=== PATIENT | male | born 1995 | race Caucasian/White ===

== ENCOUNTER 2018-11-05 21:07 | Emergency (ER) | payer OTHER | END 2018-11-05 22:23 | disposition home or self-care (01) | LOC: M ED 21:07 | DX: S60.031A Contusion of right middle finger without damage to nail, initial encounter (principal); S60.051A Contusion of right little finger without damage to nail, initial encounter; W22.8XXA Striking against or struck by other objects, initial encounter; Y92.59 Other trade areas as the place of occurrence of the external cause | CPT/HCPCS: 73130 ==

== ENCOUNTER 2018-12-25 15:37 | Emergency (ER) | payer OTHER ==
[~2018-12-25] VITALS: Ht 177.8 cm; Wt 90.9 kg
[2018-12-25 15:38] VITALS: BP 119/74
--- NOTE | 2018-12-25 16:07 | REP ---
Left elbow four views History: Fall There is no acute fracture or dislocation. The joint space is normal in appearance. Impression: There is no acute fracture or dislocation. Electronically Signed by Jameson Huertas MD 12/25/2018 03:58 P
== END 2018-12-25 16:20 | disposition home or self-care (01) ==
LOC: M ED 15:37
DX: S50.01XA Contusion of right elbow, initial encounter (principal); X58.XXXA Exposure to other specified factors, initial encounter; Y92.009 Unspecified place in unspecified non-institutional (private) residence as the place of occurrence of the external cause; Y93.89 Activity, other specified; Z88.0 Allergy status to penicillin; Z88.1 Allergy status to other antibiotic agents; Z88.2 Allergy status to sulfonamides

== ENCOUNTER 2019-04-17 20:21 | Emergency (ER) | payer MEDICAID, OTHER ==
[~2019-04-17] VITALS: Ht 177.8 cm; Wt 95.5 kg
[2019-04-17] MEDS ORDERED: IBUP-1022 PO (22:51)
[2019-04-17 22:59] VITALS: BP 133/78
--- NOTE | 2019-04-29 16:02 | REP ---
Clinical: Left inguinal pain. Rule out hernia. Technique: Real time patel scale ultrasound examination using linear high frequency transducer. Findings: Directed ultrasound examination of the left inguinal region demonstrates no obvious hernia, fluid collection, mass lesion, or adenopathy. Impression: No obvious hernia or abnormality identified in the left inguinal region by ultrasound evaluation. Electronically Signed by Neo Nova MD 04/29/2019 03:54 P
== END 2019-04-17 23:01 | disposition home or self-care (01) ==
LOC: M ED 20:21
DX: S39.013A Strain of muscle, fascia and tendon of pelvis, initial encounter (principal); L73.1 Pseudofolliculitis barbae; X50.0XXA Overexertion from strenuous movement or load, initial encounter; Y92.89 Other specified places as the place of occurrence of the external cause; Z88.2 Allergy status to sulfonamides; Z88.0 Allergy status to penicillin; F17.200 Nicotine dependence, unspecified, uncomplicated

== ENCOUNTER 2022-05-20 19:48 | Emergency (ER) | payer MEDICAID ==
[~2022-05-20] VITALS: Ht 177.8 cm; Wt 112.5 kg
[2022-05-20 19:48] VITALS: BP 140/84
[~2022-05-20 19:48] MED LIST: IBUP-1022 PO
[2022-05-20] MEDS ORDERED: SERT-141 PO (20:14)
[2022-05-20] MEDS ORDERED: MELO15TA28 PO (20:14)
== END 2022-05-20 21:46 | disposition left against medical advice (07) ==
LOC: M ED 19:48
DX: Z53.29 Procedure and treatment not carried out because of patient's decision for other reasons (principal)

== ENCOUNTER 2022-05-24 21:08 | Emergency (ER) | payer MEDICAID ==
[~2022-05-24] VITALS: Ht 177.8 cm; Wt 120.5 kg
[~2022-05-24 21:08] MED LIST changes: +MELO15TA28 PO; +SERT-141 PO
[2022-05-24 21:18] VITALS: BP 125/82
[2022-05-24] MEDS ORDERED: HYDR-3363 PO (21:37)
[2022-05-24] MEDS ORDERED: TRAZ-252 PO (21:37)
== END 2022-05-24 23:00 | disposition left against medical advice (07) ==
LOC: M ED 21:08
DX: Z53.29 Procedure and treatment not carried out because of patient's decision for other reasons (principal)

== ENCOUNTER 2022-06-02 20:44 | Emergency (ER) | payer MEDICAID, OTHER ==
[~2022-06-02] VITALS: Ht 177.8 cm; Wt 118.2 kg
[~2022-06-02 20:44] MED LIST changes: +HYDR-3363 PO; +TRAZ-252 PO
[2022-06-03] MEDS ORDERED: CEPHALEXIN 500 MG CAP PO ONE (00:20)
[2022-06-03] MEDS ORDERED: CEPH500C PO (00:26)
[2022-06-03 01:02] VITALS: BP 118/64
[2022-06-03] MEDS ORDERED: OXYCODONE/APAP 5MG/325MG(HOME DOSE PACK) PO ONE (01:10)
== END 2022-06-03 01:23 | disposition home or self-care (01) ==
LOC: EDBD 20:44 → M ED 20:44
DX: L03.115 Cellulitis of right lower limb (principal); Z88.0 Allergy status to penicillin; Z88.1 Allergy status to other antibiotic agents; Z88.2 Allergy status to sulfonamides; Z79.899 Other long term (current) drug therapy

== ENCOUNTER → 2022-12-13 | Outpatient (CLI) | payer OTHER ==
[~2022-12-13] MED LIST changes: +CEPH500C PO
== END ==
LOC: M SLEEP 20:00
PROVIDERS: ATTEND Physician Assistant Medical
DX: G47.33 Obstructive sleep apnea (adult) (pediatric) (principal)